=== PATIENT | male | born 1950 | race Caucasian/White ===

== ENCOUNTER 2017-09-08 12:32 | Emergency (ER) | payer OTHER ==
[~2017-09-08] VITALS: Ht 177.8 cm; Wt 115.7 kg
--- NOTE | 2017-09-08 12:42 | ED UPPER/LOWER EXTREMITY COMPL ---
History of Present Illness General Chief Complaint: Laceration Procedure Stated Complaint: LAC TO RIGHT HAND 2ND DIGIT Source: patient Exam Limitations: no limitations Vital Signs & Intake/Output Vital Signs & Intake/Output Vital Signs Date Time Temp Pulse Resp B/P B/P Pulse O2 O2 Flow FiO2 Mean Ox Delivery Rate 09/08 1301 Room Air 09/08 1243 98.2 79 18 167/98 98 Room Air F Allergies Coded Allergies: No Known Allergies (09/08/17) Reconcile Medications Augmentin (Augmentin 500-125 Tablet) 500 MG-125 MG TABLET 1 TAB PO BID PRN FINGER LACERATION Hydrocodone/Acetaminophen (Vicodin 5-300 MG Tablet) 5 MG-300 MG TABLET 1 TAB PO BID PRN PAIN Triage Nurses Notes Reviewed? yes Onset: Abrupt Duration: constant Timing: single episode today Severity: mild HPI: Patient is a 67-year-old male who presents emergency and that today he was working on a plow where a METAL LEVER struck the distal aspect of his right second digit index finger resulting acute onset of pain bleeding and nail avulsion. Patient's tetanus is unknown. Patient is right arm dominant. Past History Travel History Traveled to [place] past 21 day No Medical History Any Pertinent Medical History? see below for history Cardiovascular: hyperlipidemia Surgical History Surgical History: non-contributory Family History Hx Contributory? No Review of Systems Review of Systems Constitutional: Reports: no symptoms. EENTM: Reports: no symptoms. Respiratory: Reports: no symptoms. Cardiovascular: Reports: no symptoms. Gastrointestinal/Abdominal: Reports: no symptoms. Genitourinary: Reports: no symptoms. Musculoskeletal: Reports: see HPI. Skin: Reports: see HPI. Neurological/Psychological: Reports: no symptoms. Hematologic/Endocrine: Reports: see HPI, bleeding. Immunological: Reports: no symptoms. All Other Systems: Reviewed and Negative Physical Exam Physical Exam General Appearance: no apparent distress, alert, comfortable Head: atraumatic Eyes: Bilateral: normal appearance. Ears, Nose, Throat: hearing grossly normal Neck: normal inspection Cardiovascular/Respiratory: regular rate/rhythm Peripheral Pulses: 2+ radial (R) Back: normal inspection Neurologic/Tendon: normal sensation, normal motor functions, normal tendon functions, responds to pain, no evidence tendon injury, no pulse deficit Diagram Hands Back 1) Mild point tenderness noted noted almost complete nail avulsion from nail bed mild active bleeding for resisted range of motion with flexion and extension Dermatomes intact no exposed bone no exposed tendon Progress Differential Diagnosis: arterial insufficiency, compartment syndrome, contusion, dislocation, DVT, fracture, gout, septic arthritis, sprain, tendon injury Plan of Care: X-rays were resulted showing no concerns of osseous injury or fracture no concerns of tendon deficit The wounds initially using sterile technique and Betadine using approximately 5 mL of 1% lidocaine digital block was successful to right second digit index finger Been soaking the wounds approximately 10 minutes of sterile water and Betadine the nail was completely removed then irrigation approximately 500 mL of sterile water was used with chlorhexidine pad then after irrigation was performed there was a noted 5 mm nailbed laceration with superficial depth Using 5-0 absorbable suture I placed #2 sutures to marginate the laceration that penetrated the nail In which margins were revised and the nail was secured to the bed Metal finger splint was applied with finger gauze wrapping Patient tolerated well pre-and post-neurovascular was intact Patient will be prophylactically administered antibiotics and was strongly advised to follow-up with plastic surgeon Diagnostic Imaging: Viewed by Me: Radiology Read. Radiology Impression: no fracture, no dislocation, no foreign body seen Comments: PATIENT: ALEJANDRA DURAN V PRESENT AGE: 67 PATIENT ACCOUNT NO: [id number] : 50 LOCATION: [facility] ORDERING PHYSICIAN: Irwin BOGGS SERVICE DATE: 09/08/17 EXAM TYPE: RAD - XRY-FINGERS, RIGHT EXAMINATION: XR FINGER, RIGHT CLINICAL INFORMATION: Trauma to the second digit with nail avulsion. COMPARISON: None TECHNIQUE: 3 views of the right index finger. FINDINGS: Soft tissues of the index finger are suboptimally evaluated due to the overlying gauze/bandage material. There appears to be soft tissue gas in the nailbed (at site of injury). Bones have normal shape, density and alignment. Joint spaces are well-preserved in the visualized hand and wrist. No evidence of acute fracture or subluxation. IMPRESSION: No acute osseous injury. DICTATED BY: Anibal Krishna MD DATE/TIME DICTATED:09/08/171345 GRAPE PRUNER:JASON Departure Departure Disposition: HOME OR SELF CARE Condition: Stable Clinical Impression Primary Impression: Laceration of right index finger with damage to nail Referrals: Yury ALVAREZ,Alejandra Saenz MD,Arpan Gandhi (PCP/Family) Additional Instructions: As discussed begin to use the splint has been applied to the finger at all times for the following 4-5 days to improve healing begin the prescription of Augmentin to prevent infection in the prescription of Vicodin for pain, prescription is waiting at [facility]. call plastic surgeon Dr. Bragg tomorrow to be evaluated in the following week for further evaluation and treatment of your injury If symptoms worsen or if you develop any new concerning symptoms such as infection return to emergency room. Continue to change the dressings once today with extra bandages provided to the emergency room Departure Forms: Customer Survey General Discharge Information Prescriptions: Current Visit Scripts Augmentin (Augmentin 500-125 Tablet) 1 TAB PO BID PRN FINGER LACERATION #14 TAB Hydrocodone/Acetaminophen (Vicodin 5-300 MG Tablet) 1 TAB PO BID PRN PAIN #6 TAB
--- NOTE | 2017-09-08 13:52 | RADIOLOGY REPORT ---
EXAMINATION: XR FINGER, RIGHT CLINICAL INFORMATION: Trauma to the second digit with nail avulsion. COMPARISON: None TECHNIQUE: 3 views of the right index finger. FINDINGS: Soft tissues of the index finger are suboptimally evaluated due to the overlying gauze/bandage material. There appears to be soft tissue gas in the nailbed (at site of injury). Bones have normal shape, density and alignment. Joint spaces are well-preserved in the visualized hand and wrist. No evidence of acute fracture or subluxation. IMPRESSION: No acute osseous injury.
[2017-09-08] MEDS ORDERED: AUGMENTIN 500-1 EACH PO (14:00)
[2017-09-08] MEDS ORDERED: VICODIN 5-3001 EACH PO (14:00)
[2017-09-08 15:03] VITALS: BP 134/70
== END 2017-09-08 15:12 ==
LOC: ERH 12:32
DX: S61.310A Laceration without foreign body of right index finger with damage to nail, initial encounter (principal); W22.8XXA Striking against or struck by other objects, initial encounter; Y93.89 Activity, other specified; Y92.9 Unspecified place or not applicable
CPT/HCPCS: 73140-RT; 90471; 90714